=== PATIENT | male | born 1960 ===

== ENCOUNTER → 2021-07-04 | Day surgery (SDC) | payer BC | LOC: MSO 07:37 | DX: Z12.11 Encounter for screening for malignant neoplasm of colon (principal); D12.3 Benign neoplasm of transverse colon; K21.00 Gastro-esophageal reflux disease with esophagitis, without bleeding; F41.9 Anxiety disorder, unspecified; F32.9 Major depressive disorder, single episode, unspecified; Z87.891 Personal history of nicotine dependence | CPT/HCPCS: 00813; J2704; J7120 ==